=== PATIENT | female | born 1935 | race Caucasian/White ===

== ENCOUNTER 2022-08-31 08:28 | Inpatient (IN) | payer MEDICARE, OTHER, SELFPAY ==
[2022-08-31] VITALS (47 sets, daily range): BP systolic 111–161; BP diastolic 72–133; PULSE 65–113; RESP 15–26; TEMP 36.5–36.8; O2SAT 22–99; BMI 19.2
--- NOTE | 2022-08-31 | CTR_ITS ---
PROCEDURE INFORMATION: Exam: CT Head Without Contrast Exam date and time: 08/31/2022 8:25 AM Age: 87 years old Clinical indication: Stroke-like symptoms; Altered mental status/memory loss; Additional info: AMS TECHNIQUE: Imaging protocol: Computed tomography of the head without contrast. Radiation optimization: All CT scans at this facility use at least one of these dose optimization techniques: automated exposure control; mA and/or kV adjustment per patient size (includes targeted exams where dose is matched to clinical indication); or iterative reconstruction. Other technique: STROKE PROTOCOL was implemented. REPORTING DATA: Count of CT and Cardiac NM exams in prior 12 months: This patient has received 0 known CTs and 0 known cardiac nuclear medicine studies in the 12 months prior to the current study. COMPARISON: No relevant prior studies available. RADIATION DOSE METRICS: Total DLP (mGy-cm): 957.58 FINDINGS: Brain: There is focal hypodensity in the right parietal region consistent with acute nonhemorrhagic infarct. There is generalized chronic atrophy with prominence of the ventricles and sulci. There is decreased white matter density consistent with chronic small vessel white matter ischemia. Mass effect or midline shift. Cerebral ventricles: The ventricles are prominent consistent with chronic atrophy. Paranasal sinuses: Visualized sinuses are unremarkable. No fluid levels. Mastoid air cells: Visualized mastoid air cells are well aerated. Bones/joints: Unremarkable. No acute fracture. Soft tissues: Unremarkable. CT/CT head thrombolytic [id number] IMPRESSION: Focal hypodensity in the right parietal region consistent with an acute nonhemorrhagic infarct. ASSESSMENT: ASPECTS ([place] Stroke Program Early CT Score) is 9.
--- NOTE | 2022-08-31 08:35 | ECG_ITS ---
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 Measurements Intervals [place] Rate: 144 P: 0 NH: 0 QRS: -72 QRSD: 147 T: 109 QT: 342 QTc: 530 Interpretive Statements ATRIAL FIBRILLATION WITH RAPID VENTRICULAR RESPONSE LEFT AXIS DEVIATION [QRS AXIS < -30] LEFT BUNDLE BRANCH BLOCK [120+ ms QRS DURATION, 80+ ms Q/S IN V1/V2, 85+ ms R IN I/aVL/V5/V6] No previous ECG available for comparison Electronically Signed On 09-01-2022 10:06:21 CDT by Olaf Murry M.D. [id number]
--- NOTE | 2022-08-31 08:35 | XR_ITS ---
WS: [id number] Exam: XR chest 1V portable [id number] Date/Time of Exam: 08/31/2022 8:38 AM Reason For Exam: stroke Comparison 02/19/2007. There is cardiac enlargement with diffuse pulmonary vascular congestion suggesting low-grade CHF. The lungs are fully inflated. No consolidated infiltrates. No pleural effusions. The mediastinum is norm al in contour. Bony structures are intact. XR/XR chest 1V portable [id number] IMPRESSION: 1. Cardiac enlargement with diffuse pulmonary vascular congestion suspicious fo r low-grade CHF.
--- NOTE | 2022-08-31 08:38 | W.ED.NEUROSD ---
HPI - Neuro Symptoms/Deficit General: Chief Complaint: Neuro Symptoms/Deficit Stated Complaint: Stroke Time Seen by Provider: 08/31/22 08:35 History of Present Illness: Patient brought in by EMS to the ED with code stroke symptoms. Patient was found down on her floor this morning with left-sided weakness slurring of her speech and left facial droop. Patient went to bed at 10 PM last night fine. And got up sometime in the middle the night and fell and was found down at 6 AM this morning. She does not have a history of stroke or left-sided weakness. EMS noted A-fib on the monitor. Patient does not have a history of A-fib that she knows of. Nothing is made the symptoms better or worse since they started. Review of Systems General: Reports: 10 or more systems reviewed and unremarkable except in HPI and below PFSH ED PFSH: Medical History (Updated 09/01/22 @ 18:46 by Forrest Henry DO) DVT (deep venous thrombosis) Hypertension Hypothyroidism Surgical History (Updated 08/31/22 @ 12:25 by Doroteo Berry MD) History of cataract surgery History of hysterectomy Family History (Updated 08/31/22 @ 12:26 by Doroteo Berry MD) Other CAD (coronary artery disease) Stroke Social History (Updated 08/31/22 @ 12:26 by Doroteo Berry MD) Smoking and tobacco status: never smoked Alcohol intake: never Physical Exam Const: COMMON NORMALS: no acute distress, average body habitus, no limitations, healthy appearing, alert and well nourished HENMT: COMMON NORMALS: normocephalic, atraumatic, hearing grossly normal bilaterally, external ears normal, Normal external nose present and moist oral mucous membranes HEAD & SCALP: normocephalic and atraumatic NOSE: Normal external nose present EXTERNAL EAR: Yes external ears normal Eye: COMMON NORMALS: Equal, round and reactive pupils present, conjunctivae normal and no scleral icterus CONJUNCTIVA: Yes conjunctivae normal PUPIL: Yes Equal, round and reactive pupils present OTHER: Possible inability to track to the left of midline. Neck/C-Spine: COMMON NORMALS: full ROM, no lymphadenopathy, supple, no meningeal signs, no JVD and Thyroid normal THYROID: Thyroid normal Chest: COMMONS NORMALS: normal inspection of the chest and normal palpation of entire chest wall Resp: COMMON NORMALS: normal respiratory effort, No retractions, No use of accessory muscles and clear to auscultation bilaterally AUSCULTATION: clear to auscultation bilaterally Cardio: COMMON NORMALS: no JVD, S1 normal heart sound present and S2 normal heart sound present; negative for regular rate (Tachycardic with an irregularly irregular rhythm) RATE: abnormal rate (Tachycardic with an irregularly irregular rhythm) HEART SOUNDS: S1 normal heart sound present and S2 normal heart sound present GI: COMMON NORMALS: Normal to inspection, nondistended, normoactive bowel sounds present, Soft to palpation, No hepatosplenomegaly present and no masses PALPATION: Yes Soft to palpation and Yes No hepatosplenomegaly present : COMMON NORMALS: Yes no CVA tenderness BLADDER/KIDNEY EXAM: Yes no CVA tenderness Back/Pelvis: COMMON NORMALS: no CVA tenderness Neuro: KIMBERLEY COMA SCALE: document GCS findings (Alert and oriented x3.) SENSORIUM/ORIENTATION: Yes alert MENINGEAL SIGNS: Yes no meningeal signs CRANIAL NERVES: Yes CN normal except as noted (Left facial droop noted, possible inability to track left midline,) SPEECH: speech normal MOTOR EXAM: Other motor observations present (Equal symmetrical strength bilateral lower extremities, good strength in ri) Course Vital Signs: Vital signs: Vital Signs Temperature 98.0 F 09/01/22 17:05 Pulse Rate 95 09/01/22 17:05 Respiratory Rate 26 H 09/01/22 17:05 Blood Pressure 143/113 09/01/22 17:05 Pulse Oximetry 93 09/01/22 17:05 Oxygen Delivery Me thod Nasal Cannula 09/01/22 08:00 Oxygen Flow Rate 3 09/01/22 08:00 MDM - Neuro Symptoms/Deficit Medical Decision Making Patient presents to the ER as a code stroke. Patient was having left upper extremity weakness left facial droop left neglect. Dr. Andrade was consulted and she came and saw the patient and gave her NIH score of approximately 6. CT was performed which showed a left parietal stroke CTA was performed which was negative for large occlusion. Dr. Andrade said we need to admit for medical management. Dr. Berry was consulted who came and see the patient in ER. Patient also had A-fib with RVR with a rate of 140 bpm and was given 10 mg Cardizem. This is new onset. Patient will be admitted for further evaluation work-up. Differential Diagnosis Likely cerebrovascular accident; Unlikely carpal tunnel syndrome, convulsions, delirium, subarachnoid hemorrhage, peripheral neuropathy, multiple sclerosis or transient cerebral ischemia Medical Records I reviewed the patient's medical records. Lab Data I reviewed the patient's lab results. 09/01/22 04:16 09/01/22 04:[address] 08/31/22 00:00 IMPRESSION: Focal hypodensity in the right parietal region consistent with an acute nonhemorrhagic infarct. ASSESSMENT: ASPECTS ([place] Stroke Program Early CT Score) is 9. ADDENDUM: 08/31/22 0853 THIS REPORT CONTAINS FINDINGS THAT MAY BE CRITICAL TO PATIENT CARE. The findings were verbally communicated via telephone conference with Forrest Henry at 8:52 AM CDT on 08/31/2022. The findings were acknowledged and understood. Chest X-Ray 08/31/22 08:35 IMPRESSION: 1. Cardiac enlargement with diffuse pulmonary vascular congestion suspicious for low-grade CHF. Head/Neck CTA 08/31/22 09:02 IMPRESSION: 1. Focal hypodensity in the right parietal lobe consistent with acute nonhemorrhagic infarct. 2. No large vessel stenosis or occlusion. IMPRESSION: No stenosis or occlusion. REFERENCES: NASCET CRITERIA. The degree of stenosis in the cervical segment of the internal carotid artery is based on NASCET criteria. Normal is no stenosis. Mild is less than 50% stenosis. Moderate is 50-69% stenosis. Severe is 70% to 99% stenosis. Total occlusion is no detectable patent lumen. Laboratory Results WBC 7.9 10^3/uL (4.0-10.0) 08/31/22 08:45 RBC 4.68 10^6/uL (4.1-5.3) 08/31/22 08:45 Hgb 11.9 g/dL (11.5-15.3) 08/31/22 08:45 Hct 37.7 % (37.0-47.0) 08/31/22 08:45 MCV 80.6 fl (81-99) L 08/31/22 08:45 MCH 25.4 pg (28.0-34.0) L 08/31/22 08:45 MCHC 31.6 g/dL (30.0-36.0) 08/31/22 08:45 RDW 17.9 % (12.1-15.1) H 08/31/22 08:45 Plt Count 191 10^3/cmm (130-400) 08/31/22 08:45 MPV 9.9 fL (7.4-10.4) 08/31/22 08:45 Neut % (Auto) 80.0 % 08/31/22 08:45 Lymph % (Auto) 10.5 % 08/31/22 08:45 [place] % (Auto) 8.8 % 08/31/22 08:45 Eos % (Auto) 0.1 % 08/31/22 08:45 Baso % (Auto) 0.3 % 08/31/22 08:45 Neut # (Auto) 6.35 10^3/uL (1.8-7.7) 08/31/22 08:45 Lymph # (Auto) 0.8 10^3/uL (0.8-4.8) 08/31/22 08:45 [place] # (Auto) 0.7 10^3/uL (0.2-0.9) 08/31/22 08:45 Eos # (Auto) 0.0 10^3/uL (0.0-0.8) 08/31/22 08:45 Baso # (Auto) 0.0 10^3/uL (0.0-0.1) 08/31/22 08:45 Nucleated RBC % (auto) 0 % 08/31/22 08:45 Nucleated RBCs # 0.0 /100WBC 08/31/22 08:45 PT 13.80 SECONDS (12.1-14.9) 08/31/22 08:45 INR 1.03 (0.8-1.2) 08/31/22 08:45 APTT 24.8 SECONDS (23.9-36.7) 08/31/22 08:45 Sodium 138 mmol/L (136-145) 08/31/22 08:45 Potassium 3.5 mmol/L (3.5-5.1) 08/31/22 08:45 Chloride 102 mmol/L (98-107) 08/31/22 08:45 Carbon Dioxide 22 mmol/L (22-29) 08/31/22 08:45 Anion Gap 17.5 (5-19) 08/31/22 08:45 BUN 14 mg/dL (8-23) 08/31/22 08:45 Creatinine 0.8 mg/dL (0.5-0.9) 08/31/22 08:45 GFR Calculation Not Reportable 08/31/22 08:45 Glucose 152 mg/dL (65-115) H 08/31/22 08:45 POC Glucose 149 mg/dL (70-110) H 08/31/22 08:39 Calculated Osmolality 289 mOsm/kg (285-295) 08/31/22 08:45 Calcium 8.5 mg/dL (8.5-10.5) 08/31/22 08:45 Total Bilirubin 0.4 mg/dL (0.15-1.2) 08/31/22 08:45 AST 38 U/L (0-32) H 08/31/22 08:45 ALT 29 U/L (0-33) 08/31/22 08:45 Alkaline Phosphatase 84 U/L (35-105) 08/31/22 08:45 Troponin T Baseline 20 ng/L (0-10) H 08/31/22 08:40 Troponin T 120 Minute 26.29 ng/L (0-10) H 08/31/22 10:53 Delta Troponin T 6.29 ABS# (0-10) 08/31/22 10:53 Total Protein 7.4 g/dL (6.6-8.7) 08/31/22 08:45 Albumin 3.9 g/dL (3.5-5.2) 08/31/22 08:45 Globulin 3.5 g/dL (1.3-4.6) 08/31/22 08:45 TSH 1.49 uIU/mL (0.27-4.20) 08/31/22 08:40 Urine Color Light yellow (Yellow) 08/31/22 08:45 Urine Appearance Clear (CLEAR) 08/31/22 08:45 Urine pH 7 (5-7) 08/31/22 08:45 Ur Specific [place] 1.020 (1.005-1.030) 08/31/22 08:45 Urine Protein Neg (Negative) 08/31/22 08:45 Urine Glucose (UA) 2+ (Normal) H 08/31/22 08:45 Urine Ketones 1+ (Negative) H 08/31/22 08:45 Urine Blood 3+ (Negative) H 08/31/22 08:45 Urine Nitrate Negative (Negative) 08/31/22 08:45 Urine Bilirubin Neg (Negative) 08/31/22 08:45 Urine Urobilinogen Norm mg/dL (Negative) 08/31/22 08:45 Ur Leukocyte Esterase Negative (Negative) 08/31/22 08:45 Urine RBC 0-4 /hpf (0-2) H 08/31/22 08:45 Urine WBC 0-4 /hpf (0-5) H 08/31/22 08:45 Ur Squamous Epith Cells 0-4 /hpf (0-5) H 08/31/22 08:45 Amorphous Sediment 1+ /hpf 08/31/22 08:45 Urine Bacteria Trace /hpf (NONE) 08/31/22 08:45 Hyaline Casts Rare /lpf 08/31/22 08:45 Urine Mucus 1+ /hpf 08/31/22 08:45 Urine Opiates Screen Negative ng/mL (Negative) 08/31/22 08:45 Ur Barbiturates Screen Negative ng/mL (Negative) 08/31/22 08:45 Ur Phencyclidine Scrn Negative ng/mL (Negative) 08/31/22 08:45 Ur Amphetamines Screen Negative ng/mL (Negative) 08/31/22 08:45 U Benzodiazepines Scrn Negative ng/mL (Negative) 08/31/22 08:45 Urine Cocaine Screen Negative ng/mL (Negative) 08/31/22 08:45 U Marijuana (THC) Screen Negative ng/mL (Negative) 08/31/22 08:45 EKG Data EKG 1: I personally reviewed and interpreted this EKG as follows: EKG interpretation date: 08/31/22 EKG interpretation time: 08:58 Prior EKG tracings: not available for review Interpretation: EKG shows ventricular rate 144 beats a minute, A-fib with RVR, left axis deviation, left bundle branch block, QRS duration 147, QTc 425, no ST-T wave changes Discharge Plan Discharge Patient Disposition: Admitted As Inpatient Admit Provider: Doroteo Berry Clinical Impression: Cerebrovascular accident, Atrial fibrillation with rapid ventricular response Condition: Stable Coding Level of Care Code 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
[2022-08-31 08:52] LABS: Basophils % 0.3 %; Eosinophils % 0.1 %; Hematocrit 37.7 % (37.0-47.0); Hemoglobin 11.9 g/dL (11.5-15.3); Lymphocytes # 0.8 10^3/uL (0.8-4.8); Lymphocytes % 10.5 %; Mean Corpuscular HGB Conc 31.6 g/dL (30.0-36.0); Mean Corpuscular Hemoglobin 25.4 pg (28.0-34.0); Mean Corpuscular Volume 80.6 fl (81-99); Mean Platelet Volume 9.9 fL (7.4-10.4); Monocytes # 0.7 10^3/uL (0.2-0.9); Monocytes % 8.8 %; Neutrophils # 6.35 10^3/uL (1.8-7.7); Nucleated Red Blood Cells % 0 %; Platelet Count 191 10^3/cmm (130-400); Red Blood Count 4.68 10^6/uL (4.1-5.3); Red Cell Distribution Width 17.9 % (12.1-15.1); White Blood Count 7.9 10^3/uL (4.0-10.0)
[2022-08-31 08:59] LABS: Glucose Point of Care 149 mg/dL (70-110)
--- NOTE | 2022-08-31 09:02 | CTR_ITS ---
PROCEDURE INFORMATION: Exam: CTA Head With Contrast, Arteriography Exam date and time: 08/31/2022 9:26 AM Age: 87 years old Clinical indication: Cognitive deficit; Communication deficit; Additional info: CVA, left sided deficits TECHNIQUE: Imaging protocol: Computed tomographic angiography of the head with contrast. Exam focused on the arteries. 3D rendering (Not supervised by radiologist): MIP and/or 3D reconstructed images were created by the technologist. Radiation optimization: All CT scans at this facility use at least one of these dose optimization techniques: automated exposure control; mA and/or kV adjustment per patient size (includes targeted exams where dose is matched to clinical indication); or iterative reconstruction. Contrast material: OMNI 350; Contrast volume: 100 ml; Contrast route: INTRAVENOUS (IV); REPORTING DATA: Count of CT and Cardiac NM exams in prior 12 months: This patient has received 0 known CTs and 0 known cardiac nuclear medicine studies in the 12 months prior to the current study. COMPARISON: CT head thrombolytic [id number] 08/31/2022 8:25 AM RADIATION DOSE METRICS: Total DLP (mGy-cm): 368.94 FINDINGS: ANTERIOR CIRCULATION: Right internal carotid artery: Intracranial segment is patent with no significant stenosis. No aneurysm. Right middle cerebral artery: No occlusion or significant stenosis. No aneurysm. Right anterior cerebral artery: No occlusion or significant stenosis. No aneurysm. Left internal carotid artery: Intracranial segment is patent with no significant stenosis. No aneurysm. Left middle cerebral artery: No occlusion or significant stenosis. No aneurysm. Left anterior cerebral artery: No occlusion or significant stenosis. No aneurysm. POSTERIOR CIRCULATION: Right vertebral artery: No occlusion or significant stenosis. No aneurysm. Left vertebral artery: No occlusion or significant stenosis. No aneurysm. Basilar artery: No occlusion or significant stenosis. No aneurysm. Right posterior cerebral artery: No occlusion or significant stenosis. No aneurysm. Left posterior cerebral artery: No occlusion or significant stenosis. No aneurysm. Brain: There is focal hypodensity in the right parietal lobe consistent with acute nonhemorrhagic infarct Cerebral ventricles: No ventriculomegaly. Bones/joints: Unremarkable. No acute fracture. Soft tissues: Unremarkable. PROCEDURE INFORMATION: Exam: CTA Neck With Contrast Exam date and time: 08/31/2022 9:26 AM Age: 87 years old Clinical indication: Cognitive deficit; Communication deficit; Additional info: CVA, left sided deficits TECHNIQUE: Imaging protocol: Computed tomographic angiography of the neck with contrast. 3D rendering (Not supervised by radiologist): MIP and/or 3D reconstructed images were created by the technologist. Radiation optimization: All CT scans at this facility use at least one of these dose optimization techniques: automated exposure control; mA and/or kV adjustment per patient size (includes targeted exams where dose is matched to clinical indication); or iterative reconstruction. Contrast material: OMNI 350; Contrast volume: 100 ml; Contrast route: INTRAVENOUS (IV); REPORTING DATA: Count of CT and Cardiac NM exams in prior 12 months: This patient has received 0 known CTs and 0 known cardiac nuclear medicine studies in the 12 months prior to the current study. COMPARISON: CT head thrombolytic [id number] 08/31/2022 8:25 AM RADIATION DOSE METRICS: Total DLP (mGy-cm): 0.01 FINDINGS: Right common carotid artery: No stenosis. No dissection or occlusion. Right internal carotid artery: No stenosis of the extracranial segment. No dissection or occlusion. Right external carotid artery: No occlusion or stenosis of the origin. Left common carotid artery: No stenosis. No dissection or occlusion. Left internal carotid artery: No stenosis of the extracranial segment. No dissection or occlusion. Left external carotid artery: No occlusion or stenosis of the origin. Right vertebral artery: No stenosis. No dissection or occlusion. Left vertebral artery: No stenosis. No dissection or occlusion. Soft tissues: Normal. No significant soft tissue swelling. Bones/joints: No acute fracture. CT/CT angio headneck* [id number] IMPRESSION: 1. Focal hypodensity in the right parietal lobe consistent with acute nonhemorrhagic infarct. 2. No large vessel stenosis or occlusion. IMPRESSION: No stenosis or occlusion. REFERENCES: NASCET CRITERIA. The degree of stenosis in the cervical segment of the internal carotid artery is based on NASCET criteria. Normal is no stenosis. Mild is less than 50% stenosis. Moderate is 50-69% stenosis. Severe is 70% to 99% stenosis. Total occlusion is no detectable patent lumen.
[2022-08-31] MEDS: dilTIAZem 5 mg/mL SDV 5 mL 10 MG IVP (09:09)
[2022-08-31 09:15] LABS: INR 1.03 (0.8-1.2); Partial Thromboplastin Time 24.8 SECONDS (23.9-36.7)
[2022-08-31 09:24] LABS: Alanine Aminotransferase 29 U/L (0-33); Albumin Level 3.9 g/dL (3.5-5.2); Alkaline Phosphatase 84 U/L (35-105); Blood Urea Nitrogen 14 mg/dL (8-23); Calcium 8.5 mg/dL (8.5-10.5); Carbon Dioxide 22 mmol/L (22-29); Chloride 102 mmol/L (98-107); Globulin 3.5 g/dL (1.3-4.6); Glucose 152 mg/dL (65-115); Osmolality Calculated 289 mOsm/kg (285-295); Sodium 138 mmol/L (136-145); Total Bilirubin 0.4 mg/dL (0.15-1.2); Total Protein 7.4 g/dL (6.6-8.7)
[2022-08-31 09:31] LABS: Anion Gap 17.5 (5-19); Aspartate Amino Transferase 38 U/L (0-32); Potassium 3.5 mmol/L (3.5-5.1)
[2022-08-31 09:43] LABS: Urine Appearance Clear (CLEAR); Urine Color Light yellow (Yellow); pH Urine 7 (5-7)
[2022-08-31 09:44] LABS: Add Urine Microscopic? YES; Amphetamines Screen Urine Negative (Negative); Barbiturates Screen Urine Negative (Negative); Benzodiazepines Screen Urine Negative (Negative); Bilirubin Urine Neg (Negative); Blood Urine 3+ (Negative); Cocaine Screen Urine Negative (Negative); Glucose Urine UA 2+ (Normal); Ketones Urine 1+ (Negative); Leukocyte Esterase Urine Negative (Negative); Nitrate Urine Negative (Negative); Opiate Screen Urine Negative (Negative); PCP Screen Urine Negative (Negative); Protein Urine Neg (Negative); THC Screen Urine Negative (Negative); Urobilinogen Urine Norm (Negative)
[2022-08-31 09:57] LABS: Add Urine Culture? No; Amorphous Sediment Urine 1+ /hpf; Bacteria Urine TRACE /hpf; Hyaline Casts Urine RARE /lpf; Mucus Urine 1+ /hpf; RBC Urine 0-4 /hpf (0-2); Squamous Epithelial Cell Urine 0-4 /hpf (0-5); WBC Urine 0-4 /hpf (0-5)
--- NOTE | 2022-08-31 10:46 | USCV_ITS ---
EdwardsAimee Age: 87 Gender: F : 1935 Exam Date: 08/31/2022 15:37 Ordering Phys: Doroteo Berry MD Technologist: Peterson Junior Exam Location: [facility] [place]ication: CVA BP: 117 / 89 HR: 89 Rhythm: Sinus Technical Quality: Adequate MEASUREMENTS (Male / Female) Normal Values 2D ECHO LVOT Diameter 2.0 cm LV Ejection Fraction MOD 2C 44.4 % LV Ejection Fraction 2C AL 44.3 % LA Diameter 3.4 cm LA Width 3.9 cm LA Height 5.1 cm RA Width 4.6 cm RA Height 6.0 cm Aorta at Sinotubular Diameter 2.4 cm IVC Diameter 1.8 cm M-MODE Aortic Annulus Diameter 2.3 cm LA Ao Ratio MM 1.5 DOPPLER AV Peak Velocity 135.7 cm/s LVOT Peak Velocity 92.0 cm/s AV Area Cont Eq vti 2.4 cm squared AV Area Cont Eq pk 2.1 cm squared MV Peak Velocity 143.0 cm/s MV Area PHT 5.5 cm squared Mitral E to A Ratio 2.6 MV E' Velocity 54.5 cm/s Mitral E to MV E' Ratio 7.3 Mitral E to LV E' Lateral Ratio 5.7 Mitral E to LV E' Septal Ratio 10.2 TR Peak Velocity 262.2 cm/s TR Peak Gradient 27.5 mmHg TR Mean Velocity 186.9 cm/s TR Mean Gradient 15.7 mmHg TR Velocity Time Integral 68.4 cm Right Atrial Pressure 8.0 mmHg Pulmonary Artery Systolic Pressu 35.5 mmHg PV Peak Velocity 82.3 cm/s RV Acceleration Time 0.1 s RV Ejection Time 0.3 s RV AcT/ET 0.4 FINDINGS Left Ventricle Normal left ventricular cavity size. Mildly decreased left ventricular systolic function. Left ventricular ejection fraction is estimated at 40-45 %. Global left ventricular hypokinesis. Abnormal septal motion. Right Ventricle Normal right ventricular size and systolic function. Right ventricular systolic pressure 43 mmHg. Right Atrium Severely increased right atrial size. Left Atrium Moderately increased left atrial size. Mitral Valve Moderately thickened mitral valve. Moderate mitral annular calcification. No mitral valve stenosis. Mild-moderate mitral valve regurgitation. Aortic Valve Thickened trileaflet aortic valve. No aortic valve stenosis. Mild aortic valve regurgitation. Tricuspid Valve Structurally normal tricuspid valve. No tricuspid valve stenosis. Moderate tricuspid valve regurgitation. Pulmonic Valve Structurally normal pulmonic valve. No pulmonary valve stenosis. Trace pulmonary valve regurgitation. Pericardium No pericardial effusion. Aorta Normal size aortic root and proximal ascending aorta. IVC Normal IVC dimension with <50% respiratory change of the inferior vena cava. CONCLUSIONS 1. Normal left ventricular cavity size. Mildly decreased left ventricular systolic function. Left ventricular ejection fraction is estimated at 40-45 %. Global left ventricular hypokinesis. Abnormal septal motion. 2. Moderate tricuspid valve regurgitation. 3. Mild-moderate mitral valve regurgitation. 4. Mild aortic valve regurgitation. 5. No prior similar studies to compare. Lucretia Jimenez MD (Electronically Signed) Final Date: 31 August 2022 23:12 S
[2022-08-31] MEDS: dilTIAZem 100 MG in sodium chloride 0.9% (add-van) 100 ML IV (11:09)
[2022-08-31] MEDS: sodium chloride 0.9% 500 ML IV (11:10)
[2022-08-31 11:15] LABS: Troponin(5th) Baseline 20 ng/L (0-10)
[2022-08-31 11:29] LABS: Troponin 5 2HR 26.29 ng/L (0-10)
[2022-08-31] MEDS: aspirin 81 mg Chew Tablet 324 MG PO (11:39)
[2022-08-31 11:40] LABS: Troponin 5 2HR Delta 6.29 ABS# (0-10)
[2022-08-31 11:45] LABS: Thyroid Stimulating Hormone 1.49 uIU/mL (0.27-4.20)
--- NOTE | 2022-08-31 12:22 | PM.HP ---
Providers/Chief Complaint Admitting Physician: Doroteo Berry MD Chief Complaint: Stroke History of Present Illness Aimee Amanda is a 87 year old female who presented to the emergency department with complaints of left-sided weakness. She reports upon awakening this morning, she noted difficulty speaking, slurred speech, weakness on her left side upper extremity greater than lower extremity. She reports she was normal when she went to bed at night. She has never had any medical problems like this before. She denies any past history of atrial fibrillation. Atrial fibrillation was noted by EMS on arrival. She denies any history of blood in her stool or black or tarry stool. She has not been sick lately with any fever or respiratory symptoms. She denies any palpitations currently, and has not had any palpitations or chest discomfort recently. She does report she takes an aspirin daily. In the emergency department she got a bolus of diltiazem. I have ordered a diltiazem drip, some IV fluids cautiously, and aspirin p.o. Review of Systems General: Reports: 10 or more systems reviewed and unremarkable except in HPI and below Const: Denies: fever(s) or chills Card: Denies: chest pain or palpitations Resp: Denies: dyspnea GI: Denies: abdominal pain, nausea, hematochezia or melena Medications/Allergies Home Medications Medication Instructions Recorded Confirmed Last Taken Type amlodipine 2.5 mg tablet 2.5 mg PO DAILY@08/31/22 08/31/22 Unknown History aspirin 81 mg tablet,delayed 81 mg PO QAM 08/31/22 08/31/22 Unknown History release levothyroxine 88 mcg tablet 88 mcg PO DAILY@08/31/22 08/31/22 Unknown History multivitamin 1 tab PO QAM 08/31/22 08/31/22 Unknown History Allergies Allergy/AdvReac Type Severity Reaction Status Date / Time No Known Allergies Allergy Verified 08/31/22 09:47 PFSH Acute PFSH: Medical History (Updated 08/31/22 @ 12:37 by Doroteo Berry MD) DVT (deep venous thrombosis) Hypertension Hypothyroidism Surgical History (Updated 08/31/22 @ 12:25 by Doroteo Berry MD) History of cataract surgery History of hysterectomy Family History (Updated 08/31/22 @ 12:26 by Doroteo Berry MD) Other CAD (coronary artery disease) Stroke Social History (Updated 08/31/22 @ 12:26 by Doroteo Berry MD) Smoking and tobacco status: never smoked Alcohol intake: never Vitals/I&O/Wt Last Vital Signs Pulse 85 08/31/22 12:00 Resp 19 H 08/31/22 12:00 BP 161/133 08/31/22 12:00 Pulse Ox 91 08/31/22 10:30 Weight last 48 hrs Weight 53.977 kg Physical Exam Narrative: General exam is no distress, alert and conversive, slurred speech evident. HEENT: Atraumatic and normocephalic. Oropharynx clear. Neck is supple no lymphadenopathy thyromegaly Cardiovascular irregular, irregular with accelerated rate Lungs clear no wheezing or crackles Abdomen is soft nontender positive bowel sounds. No obvious organomegaly exam was deferred Extremities no cyanosis clubbing or edema, cap refill brisk Skin no rash Neuro slurred speech is evident. Reduction in strength noted on the left side. NIHSS score is approximately 6 Data 08/31/22 08:45 08/31/22 08:45 Other Labs: INR is normal Initial troponin 20 with repeat of 26 LFTs normal with exception of AST of 38 TSH I have ordered and is 1.49 Albumin 3.9 Calcium normal at 8.5 Urinalysis 0-4 reds 0-4 whites Urine drug screen negative CTA head and neck demonstrate no large vessel stenosis or occlusion CT head focal hypodensity right parietal region consistent with acute nonhemorrhagic infarct Chest x-ray which I visualized personally demonstrates some vascular congestion EKG which I reviewed personally demonstrates A-fib with RVR with a rate of 140, left bundle. She has no prior history of left bundle branch block. A&P Assessment and plan (1) Cerebrovascular accident: Patient presents with acute right parietal CVA she was not a candidate for tPA. She is not a candidate for thrombectomy. Initiate aspirin and Plavix Therapy consultations Continue telemetry Secondary to atrial fibrillation on admission, consideration of anticoagulation on discharge or at 48 hours. We will discuss risks and benefits with patient and family Echocardiogram Hydration if tolerated. Note she had some vascular congestion on chest x-ray Initiate atorvastatin 40 mg daily Lipid profile, A1c in the morning. Note that her blood sugar was 152 on arrival Frequent neurologic checks Qualifiers: CVA mechanism: thrombosis Laterality of affected vessel: right (2) Atrial fibrillation with rapid ventricular response: Check echocardiogram TSH has been ordered and normal Telemetry Initially Cardizem drip, with plans to convert to oral Cardizem in the near future Consider anticoagulation near end of hospital course As potentially new left bundle branch block is also noted serial troponins will be done. She denies any chest discomfort. (3) Hypertension: Permissive hypertension currently. Consider treatment if blood pressure greater than 220/120 (4) Hypothyroidism: TSH checked and normal. Continue current dose of thyroid hormone Plan Other medical problems as outlined in past medical history Allow natural , per patient request. Discussed in detail. Patient is cognizant, alert and oriented. Lovenox for DVT prophylaxis Attestations Medical Necessity Statement*: Will require greater than 2 midnight stay for evaluation and treatment of CVA with significant impairment Diagnoses Cerebrovascular accident I63.9 CVA mechanism: thrombosis Laterality of affected vessel: right Atrial fibrillation with rapid ventricular response I48.91 Hypertension I10 Hypothyroidism E03.9 Time Spent (min) 53
--- NOTE | 2022-08-31 13:14 | P.PNCC_ITS ---
Stroke Alert Activation ED Arrival Date: 08/31/22 ED Arrival Time: : Last Known Normal/at Baseline: 3-4 hours ago Other Last Known Well Infomation: She was last known well at 10:00 last night. The patient told me that she woke up at about 3 in the morning and discovered that she was on the floor. Her left side was hurting because she was laying on her left side. She had to crawl and it took her hours to find her phone and call 911. She is aware that her left side is weak although she does not spontaneously complain about it. Stroke alert was called by EMS prior to the patient's arrival and I called and talked with the triage nurse immediately. I called back when I did not hear from anyone and based upon the nurses description I ordered a CT angiogram as it sounded like the patient had a significant deficit, and she does. It was clear that the patient was not a candidate for tPA. I came to the department and reviewed the case with Dr. Henry. I reviewed the patient's exam. I talked with the patient about her stroke. I offered to talk with her daughter but her daughter was at work and not accessible. I reviewed her CT angiogram with Dr. Henry and then went down to the radiology department and reviewed it with Dr. Garrison. The patient did not have a retrievable clot and her CAT scan shows an infarct in the distal right middle cerebral artery distribution. She is in atrial fibrillation. I talked with Dr. Berry. Clearly the patient's only risk factor is A-fib (her blood vessels look well and no signs of significant atherosclerosis) and she is in A-fib with RVR. I reviewed current up-to-date recommendation for anticoagulation with A-fib after stroke and the author recommended initiating DOAC 48 hours after the stroke. The patient's stroke-volume is small to moderate and that would be the recommendation that I would agree with. Stroke Alert Activated by: EMS Stroke Alert Activation Time: 08:15 Stroke MD @ Bedside Time: 08:15 NIH Stroke Scale Time: 08:45 NIH stroke score NIHSS: Level Of Consciousness - 1a: 0 Level Of Consciousness Questions - 1b: Both Correct Level Of Consciousness Commands - 1c: Both Correct Best Gaze - 2: Partial Gaze Palsy Visual Cramer - 3: No Visual Loss Facial Palsy - 4: Minor Paralysis Motor Arm Right - 5: No Drift Motor Arm Left - 5: Effort Against [place] Motor Leg Right - 6: No Drift Motor Leg Left - 6: No Drift Limb Ataxia - 7: Absent Sensory - 8: Normal Best Language - 9: No Aphasia Dysarthia - 10: Mild/Moderate Dysarthia (Moderate aprosodia) Extinction And Inattention - 11: 1 (Sensory only not visual) Score: Total Score: 6 Stroke Alert Data/Treatment Time to CT of Head: 08:25 CT Results Time: 08:52 CT Impression: Focal hypodensity in the right parietal region consistent with an acute nonhemorrhagic infarct. ? ASSESSMENT: ASPECTS ([place] Stroke Program Early CT Score) is 9. ? Dictated By: Tim Wong Signed By: Tim Wong Signed Date/Time: 08/31/22 0843 Stroke Risk Factors: atrial fibrillation tPA Contraindication: tPA Contraindication: Treatment not indcated tPA Admin Prior to Arrival: No Patient & Family Educated on: Cause of Stroke and Treament Plan Other Patient & Family Education: I did not discuss anticoagulation with the patient but I discussed anticoagulation with Dr. Henry and then with Dr. Berry. Standardized Stroke Orders Used: Yes Critical Care Time Critical Care Time: 30 - 74 mins A&P Assessment and plan (1) Acute right arterial ischemic stroke, middle cerebral artery (MCA): Acute right middle cerebral artery stroke with severe weakness of the left arm, minor weakness of the left face, tendency for right gaze preference without full gaze preference and she has full eye movements. I could not establish a visual field cut. She is aprosodic. She does not have a retrievable clot and from the looks of her CAT scan, she already has significant infarction. The best plan is for initiating an anticoagulant within 48 hours based upon recommendation on up-to-date. Discussed with Dr. Berry. Risk of hemorrhage will need to be discussed with the patient and her daughter. (2) Atrial fibrillation with rapid ventricular response: Coding Level of Care Code Acute Code for [facility] Diagnoses Acute right arterial ischemic stroke, middle cerebral artery (MCA) I63.511 Atrial fibrillation with rapid ventricular response I48.91
[2022-08-31] MEDS: sodium chloride 0.9% 1,000 ML 75 ML IV (14:05)
[2022-08-31] MEDS: enoxaparin 40 mg/0.4 mL Syringe SUBCUT (14:06)
[2022-08-31] MEDS: atorvastatin 40 mg Tablet PO (21:35)
[2022-09-01] VITALS (218 sets, daily range): BP systolic 102–152; BP diastolic 70–113; PULSE 63–117; RESP 10–33; TEMP 36.3–36.7; O2SAT 88–99
[2022-09-01] MEDS: sodium chloride 0.9% 1,000 ML 75 ML IV (03:52)
[2022-09-01 04:47] LABS: Basophils % 0.2 %; Eosinophils # 0.1 10^3/uL (0.0-0.8); Eosinophils % 1.8 %; Hematocrit 35.4 % (37.0-47.0); Hemoglobin 11.1 g/dL (11.5-15.3); Lymphocytes # 1.3 10^3/uL (0.8-4.8); Lymphocytes % 29.2 %; Mean Corpuscular HGB Conc 31.4 g/dL (30.0-36.0); Mean Corpuscular Hemoglobin 25.3 pg (28.0-34.0); Mean Corpuscular Volume 80.6 fl (81-99); Mean Platelet Volume 10.3 fL (7.4-10.4); Monocytes # 0.6 10^3/uL (0.2-0.9); Monocytes % 13.7 %; Neutrophils # 2.41 10^3/uL (1.8-7.7); Neutrophils % 54.9 %; Nucleated Red Blood Cells % 0 %; Platelet Count 172 10^3/cmm (130-400); Red Blood Count 4.39 10^6/uL (4.1-5.3); Red Cell Distribution Width 18.3 % (12.1-15.1); White Blood Count 4.4 10^3/uL (4.0-10.0)
[2022-09-01 04:58] LABS: Estmated Average Glucose 131; Hemoglobin A1C 6.2 % (4.0-6.0)
[2022-09-01 05:05] LABS: Alanine Aminotransferase 25 U/L (0-33); Albumin Level 3.3 g/dL (3.5-5.2); Alkaline Phosphatase 70 U/L (35-105); Anion Gap 12.9 (5-19); Aspartate Amino Transferase 32 U/L (0-32); Blood Urea Nitrogen 15 mg/dL (8-23); Calcium 8.4 mg/dL (8.5-10.5); Carbon Dioxide 24 mmol/L (22-29); Chloride 107 mmol/L (98-107); Globulin 2.9 g/dL (1.3-4.6); Glucose 107 mg/dL (65-115); Magnesium 1.8 mg/dL (1.7-2.3); Osmolality Calculated 291 mOsm/kg (285-295); Potassium 3.9 mmol/L (3.5-5.1); Sodium 140 mmol/L (136-145); Total Bilirubin 0.5 mg/dL (0.15-1.2); Total Protein 6.2 g/dL (6.6-8.7)
[2022-09-01 05:09] LABS: Chol HDL Ratio 2.94 mg/dL (0.0-4.40); Cholesterol 100 mg/dL (0-200); HDL Cholesterol 34 mg/dL (60-100); LDL Cholesterol Calculated 51 mg/dL (50-129); Triglycerides 75 mg/dL (0-150)
[2022-09-01] MEDS: levothyroxine 88 mcg Tablet PO (07:47)
[2022-09-01] MEDS: clopidogrel 75 mg Tablet PO (08:57)
[2022-09-01] MEDS: aspirin 81 mg EC Tablet PO (08:57)
[2022-09-01] MEDS: metoprolol tartrate 25 mg Tablet 12.5 MG PO (08:58)
--- NOTE | 2022-09-01 09:24 | ECG_ITS ---
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 Measurements Intervals [place] Rate: 99 P: 0 OR: 0 QRS: -72 QRSD: 147 T: 107 QT: 358 QTc: 461 Interpretive Statements ATRIAL FIBRILLATION INTRAVENTRICULAR CONDUCTION DELAY [130+ ms QRS DURATION] LATERAL MYOCARDIAL INFARCTION , PROBABLY RECENT INFERIOR MYOCARDIAL INFARCTION , OF INDETERMINATE AGE Compared to ECG 08/31/2022 08:58:50 Intraventricular conduction delay now present Myocardial infarct finding now present Left-axis deviation no longer present Left bundle-branch block no longer present Electronically Signed On 09-01-2022 12:14:22 CDT by Lucretia Jimenez M.D. [id number]
--- NOTE | 2022-09-01 10:51 | PC.CHAP ---
Pastoral Care Encounter/Spiritual Assessment Type of Contact [x] Declined biostatistician visit [] Patient/Family/Request visit [] Outpatient visit [] Follow-up visit [] Physician referral [] Code/Alert [] Routine visit [] Staff referral [] Actively dying [] Patient sleeping [] Family support [] [] Out of room [] Palliative care [] [] Receiving care in room [] Pre-surgical visit [] Trauma [] Long length of stay [] ICU visit [] Other: Relational/Emotional Strength [] Patient feels connected with others/family/visitors/staff [] Distress [] Loneliness/isolation [] Abandonment Spirituality of Patient [] Person of Treva [] Attends Yarsanism of their [place] [] Believes in Prayer [] Reads Bible or Sikhism materials [] There are Spiritual issues 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 [] Prayer [] Active listening [] Non-anxious presence [] Spiritual/emotional support [] Crisis/trauma care [] Spiritual counseling [] Bereavement support [] Provided bereavement packet [] Provided Bible/devotional materials [] Provided toy/stuffed animal, coloring book to patient or family member [] Provided Communion [] Anointing/[place] [] Salvation [] Completed spiritual assessment [] Other: Impact on Illness or Injury [] Angry [] Fearful [] Anxious [] Often cries [] Exhaustion [] Unable to work [] Unable to attend jehovah's witness [] Unable to walk/stand [] Unable to read [] Unable to drive [] Unable to eat/drink [] Unable to sleep [] Unable to be with family [] Patient intubated [] Other: Summary Declined biostatistician visit Time spent with patient 5 mins
[2022-09-01] MEDS: enoxaparin 40 mg/0.4 mL Syringe SUBCUT (13:35)
--- NOTE | 2022-09-01 14:46 | P.PN_ITS ---
Subjective Subjective: Ada which she is about the same today. She thinks she might be able to move her left arm a little bit better. No pain. Medications: Reviewed: Yes Vitals/I&O/Wt Last Vital Signs Temp 97.7 F 09/01/22 12:00 Pulse 79 09/01/22 13:20 Resp 19 H 09/01/22 13:20 BP 132/74 09/01/22 13:20 Pulse Ox 93 09/01/22 13:20 O2 Del Method Nasal Cannula 09/01/22 08:00 O2 Flow Rate 3 09/01/22 08:00 08/31/22 09/01/22 09/01/22 22:59 06:59 14:59 Intake Total 528 / 528 1000 / 1528 899.875 / 899.875 Balance 528 / 528 1000 / 1528 899.875 / 899.875 Weight last 48 hrs Weight 53.977 kg Physical Exam Narrative: General conversive. Telemetry indicates atrial fibrillation with controlled rate Neck is supple no lymphadenopathy thyromegaly Cardiovascular irregular, irregular with old rate and no murmur Lungs clear no wheezing or crackles Abdomen is soft nontender positive bowel sounds. No obvious organomegaly Extremities no cyanosis clubbing or edema, cap refill brisk Skin no rash Neuro slurred speech is evident. Reduction in strength noted on the left side. No change from yesterday Data 09/01/22 04:16 09/01/22 04:16 Other Labs: Echo demonstrated ejection fraction of 40 to 45%, hypokinesis, moderate tr icuspid and mild to moderate mitral regurgitation A&P Assessment and plan (1) Cerebrovascular accident: Patient presents with acute right parietal CVA she was not a candidate for tPA. She is not a candidate for thrombectomy. Continue aspirin and Plavix Therapy consultations. Continue telemetry Secondary to atrial fibrillation on admission, consideration of anticoagulation on discharge or at 48 hours. Risks and benefits discussed with family in detail as well as patient. They agree to initiation of anticoagulation. Continue aspirin low-dose. Discontinue Plavix for tomorrow with plans on adding Xarelto. May discontinue hydration at this time Continue atorvastatin 40 mg daily A1c reviewed. Slightly elevated. Could conceivably benefit from metformin at discharge Continue neurologic checks Qualifiers: CVA mechanism: thrombosis Laterality of affected vessel: right (2) Atrial fibrillation with rapid ventricular response: Echocardiogram shows findings above. EF is diminished. Consider outpatient nuclear stress testing. For now continue aspirin. Add beta-carie low-dose and discontinue Cardizem drip. Continue statin. TSH has been ordered and normal Telemetry Anticoagulation to be initiated tomorrow As potentially new left bundle branch block is also noted serial troponins will be done. She denies any chest discomfort. (3) Hypertension: Permissive hypertension currently. Consider treatment if blood pressure greater than 220/120 (4) Hypothyroidism: TSH checked and normal. Continue current dose of thyroid hormone Plan Other medical problems as outlined in past medical history Allow natural , per patient request. Discussed in detail. Patient is cognizant, alert and oriented. Lovenox for DVT prophylaxis Will need skilled placement Attestations Medical Necessity Statement*: Needs continued hospitalization, for evaluation and treatment of CVA with si gnificant impairment Diagnoses Cerebrovascular accident I63.9 CVA mechanism: thrombosis Laterality of affected vessel: right Atrial fibrillation with rapid ventricular response I48.91 Hypertension I10 Hypothyroidism E03.9 Time Spent (min) 28
--- NOTE | 2022-09-01 17:07 | PC.NURSE ---
reported shortness of breath Pt described that she can't take a full deep breath now. spo2 is 95% on 2 L NC. Right lung areas has crackles. Noted pt HR is up to 120s when walking w/PT to therapy this afternoon. HR down to low 100s when at rest. BP- 143/[address] Berry via telephone. Received telephone orders read back to give 40 mg IVP lasix once and increase metoprolol to 25 mg, first dose at 6pm.
[2022-09-01] MEDS: FUROsemide 10 mg/mL SDV 4mL 40 MG IVP (17:36)
[2022-09-01] MEDS: metoprolol tartrate 25 mg Tablet PO (17:36)
[2022-09-01] MEDS: atorvastatin 40 mg Tablet PO (20:20)
[2022-09-02] VITALS (11 sets, daily range): BP systolic 124–156; BP diastolic 77–101; PULSE 70–94; RESP 15–20; TEMP 36.3–36.6; O2SAT 95–98
[2022-09-02 05:38] LABS: Basophils % 0.2 %; Eosinophils # 0.1 10^3/uL (0.0-0.8); Eosinophils % 1.9 %; Hemoglobin 11.5 g/dL (11.5-15.3); Lymphocytes # 1.3 10^3/uL (0.8-4.8); Lymphocytes % 32.4 %; Mean Corpuscular HGB Conc 31.1 g/dL (30.0-36.0); Mean Corpuscular Hemoglobin 25.3 pg (28.0-34.0); Mean Corpuscular Volume 81.3 fl (81-99); Mean Platelet Volume 10.6 fL (7.4-10.4); Monocytes # 0.6 10^3/uL (0.2-0.9); Monocytes % 14.6 %; Neutrophils # 2.08 10^3/uL (1.8-7.7); Neutrophils % 50.7 %; Nucleated Red Blood Cells % 0 %; Platelet Count 183 10^3/cmm (130-400); Red Blood Count 4.55 10^6/uL (4.1-5.3); Red Cell Distribution Width 18.4 % (12.1-15.1); White Blood Count 4.1 10^3/uL (4.0-10.0)
[2022-09-02 05:59] LABS: Anion Gap 13.8 (5-19); Blood Urea Nitrogen 16 mg/dL (8-23); Calcium 8.8 mg/dL (8.5-10.5); Carbon Dioxide 27 mmol/L (22-29); Chloride 106 mmol/L (98-107); Glucose 89 mg/dL (65-115); Osmolality Calculated 297 mOsm/kg (285-295); Potassium 3.8 mmol/L (3.5-5.1); Sodium 143 mmol/L (136-145)
[2022-09-02] MEDS: levothyroxine 88 mcg Tablet PO (06:04)
[2022-09-02] MEDS: metoprolol tartrate 25 mg Tablet PO ×2 (06:04→17:55)
--- NOTE | 2022-09-02 07:58 | PM.PN ---
Subjective Subjective: Aimee Gerardo feels a little short of breath. No chest pain. Heart rate has improved, and most are less than 100. I did give her 40 mg of Lasix IV yesterday, and her oxygen needs have decreased to 2 L. Medications: Reviewed: Yes Vitals/I&O/Wt Last Vital Signs Temp 97.7 F 09/02/22 04:00 Pulse 72 09/02/22 07:55 Resp 18 09/02/22 04:00 BP 134/89 09/02/22 04:00 Pulse Ox 98 09/02/22 07:55 O2 Del Method Nasal Cannula 09/02/22 07:55 O2 Flow Rate 2 09/02/22 07:55 09/01/22 09/02/22 09/02/22 22:59 06:59 14:59 Intake Total 726.125 / 1626.000 Output Total 500 / 500 1150 / 1650 Balance 226.125 / 1126.000 -1150 / -24.000 Weight last 48 hrs Weight 53.977 kg Physical Exam Narrative: General no distress Cardiovascular irregular, irregular with old rate and no murmur Lungs clear no wheezing or crackles Abdomen is soft nontender positive bowel sounds. No obvious organomegaly Extremities no cyanosis clubbing or edema, cap refill brisk Skin no rash Neuro slurred speech is evident. Reduction in strength noted on the left side. No change from yesterday. Still cannot make a fist or extend her fingers. Data 09/02/22 04:50 09/02/22 04:50 A&P Assessment and plan (1) Cerebrovascular accident: Patient presents with acute right parietal CVA she was not a candidate for tPA. She is not a candidate for thrombectomy. Continue aspirin and Plavix Therapy consultations. Continue telemetry. She has persistent atrial fibrillation, now controlled rate on current dose of metoprolol Secondary to atrial fibrillation on admission, consideration of anticoagulation on discharge or at 48 hours. Risks and benefits discussed with family in detail as well as patient. They agree to initiation of anticoagulation. Continue aspirin low-dose. Plavix will not be given today. Initiate Eliquis 5 mg twice daily. Continue atorvastatin 40 mg daily A1c reviewed. Slightly elevated. Could conceivably benefit from metformin at discharge Continue neurologic checks Qualifiers: CVA mechanism: unspecified Qualified Code(s): I63.9 - Cerebral infarction, unspecified (2) Atrial fibrillation with rapid ventricular response: Echocardiogram shows findings above. EF is diminished. Consider outpatient nuclear stress testing. For now continue aspirin. Continue beta-carie. Continue statin. TSH has been ordered and normal Telemetry Anticoagulation initiated today She has some persistent mild fluid overload. Lasix 20 mg IV today. BMP tomorrow to monitor for renal function. This is consistent with mild acute systolic heart failure (3) Hypertension: Blood pressure stable currently (4) Hypothyroidism: TSH checked and normal. Continue current dose of thyroid hormone Plan Other medical problems as outlined in past medical history Allow natural , per patient request. Discussed in detail. Patient is cognizant, alert and oriented. Lovenox for DVT prophylaxis Will need skilled placement Attestations Medical Necessity Statement*: Needs continued hospital stay for intensive rehabilitation pending placement, and further diuresis secondary to mild acute systolic congestive heart failure Diagnoses Cerebrovascular accident I63.9 CVA mechanism: unspecified Atrial fibrillation with rapid ventricular response I48.91 Hypertension I10 Hypothyroidism E03.9 Time Spent (min) 27
[2022-09-02] MEDS: FUROsemide 10 mg/mL SDV 2mL 20 MG IVP (08:31)
[2022-09-02] MEDS: apixaban 5 mg Tablet PO ×2 (08:31→20:01)
[2022-09-02] MEDS: aspirin 81 mg EC Tablet PO (08:31)
[2022-09-02] MEDS: atorvastatin 40 mg Tablet PO (20:01)
[2022-09-03 03:30] VITALS: PULSE 60
[2022-09-03 03:35] LABS: Basophils % 0.5 %; Eosinophils # 0.2 10^3/uL (0.0-0.8); Eosinophils % 4.2 %; Hematocrit 35.7 % (37.0-47.0); Hemoglobin 11.2 g/dL (11.5-15.3); Lymphocytes # 1.5 10^3/uL (0.8-4.8); Lymphocytes % 35.9 %; Mean Corpuscular HGB Conc 31.4 g/dL (30.0-36.0); Mean Corpuscular Hemoglobin 25.7 pg (28.0-34.0); Mean Corpuscular Volume 81.9 fl (81-99); Mean Platelet Volume 10.3 fL (7.4-10.4); Monocytes # 0.7 10^3/uL (0.2-0.9); Monocytes % 16.4 %; Neutrophils # 1.76 10^3/uL (1.8-7.7); Nucleated Red Blood Cells % 0 %; Platelet Count 169 10^3/cmm (130-400); Red Blood Count 4.36 10^6/uL (4.1-5.3); Red Cell Distribution Width 17.8 % (12.1-15.1); White Blood Count 4.1 10^3/uL (4.0-10.0)
[2022-09-03 04:00] VITALS: BP 142/94; PULSE 70; RESP 17; TEMP 36.6; O2SAT 98
[2022-09-03 04:01] LABS: Blood Urea Nitrogen 21 mg/dL (8-23); Calcium 8.9 mg/dL (8.5-10.5); Carbon Dioxide 28 mmol/L (22-29); Chloride 103 mmol/L (98-107); Glucose 99 mg/dL (65-115); Magnesium 1.7 mg/dL (1.7-2.3); Osmolality Calculated 297 mOsm/kg (285-295); Sodium 142 mmol/L (136-145)
[2022-09-03] MEDS: levothyroxine 88 mcg Tablet PO (06:03)
[2022-09-03] MEDS: metoprolol tartrate 25 mg Tablet PO (06:03)
[2022-09-03 07:06] VITALS: BP 124/98; PULSE 78; RESP 20; TEMP 36.8; O2SAT 97
[2022-09-03 07:30] VITALS: PULSE 72; O2SAT 96
[2022-09-03] MEDS: apixaban 5 mg Tablet PO (08:40)
[2022-09-03] MEDS: aspirin 81 mg EC Tablet PO (08:40)
--- NOTE | 2022-09-03 09:02 | PC.SOCIAL ---
IMM update IMM updated with patient. Verbalized an understanding. Copy Pg 2 provided. Initialled, dated, timed, and placed in chart.
[2022-09-03 09:16] LABS: SARS Covid-2 Antigen negative (Negative)
[2022-09-03 11:17] VITALS: BP 155/103; PULSE 98; RESP 14; O2SAT 96
--- NOTE | 2022-09-03 14:19 | PM.DCS ---
Discharge Providers Date of Admission: 08/31/22 13:04 Date of Discharge: September 03, 2022 Attending Provider at Admission: Doroteo Berry MD Attending Provider at Discharge: Karli Adam MD Primary Care Provider: Ibrahima Stovall Diagnoses at Discharge Discharge Diagnosis (1) Cerebrovascular accident: Status: Acute Qualifiers: CVA mechanism: unspecified Qualified Code(s): I63.9 - Cerebral infarction, unspecified (2) Atrial fibrillation with rapid ventricular response: Status: Acute (3) Hypertension: Status: Acute (4) Hypothyroidism: Status: Acute Reason for Visit Reason for Visit: Stroke Hospital Course Hospital Course Ada Pablo Amanda is a 87 year old female who presented to the emergency department with complaints of left-sided weakness. She was diagnosed with acute right parietal CVA, she was not a candidate for tPA.? She is not a candidate for thrombectomy.Secondary to atrial fibrillation on admission, she was started on Eliquis 5mg BID along with ASA 81mg daily. Atorvastatin 40mg was continued. Hba1c in pre diabetic range at 6.1. Recommend continued follow up with PCP after discharge. Patient participated with therapy as recommended during hospitalization and is being discharged to SNF today. Other notable finding during admission include Echocardiogram with LVEF 40-45% with global hypokinesis. Consider outpatient nuclear stress testing.? beta-carie was added at metoprolol 25mg BID.? TSH normal. On 09/02 she had signs of mild fluid overload for which she received Lasix 20 mg IV x 1 on 09/02 likely 2/2 systolic heart failure and IVF. She is euvolemic today at time of discharge. Physical Exam Narrative: General: No acute distress, AO x3 HEENT: PERRLA, pupils bilaterally equal and reactive, pallors not present Chest: Normal vesicular breath sounds, no added sounds, equal good air entry bilaterally CVS: S1-S2 regular, no murmurs, no tachycardia, no gallops, no rubs Abdomen: Soft, nontender, no organomegaly, bowel sounds present Neuro: slurred speech.? Reduction in strength noted on the left side. Discharge Data Studies Completed and Pending Completed Studies During Hospitalization Category Date Time Status CT head thrombolytic 14275 Stat Cat Scan 08/31/22 Completed CTA head neck [CT angio headneck* [id number]] Stat Cat Scan 08/31/22 09:02 Completed XR chest 1V portable [id number] Stat Exams 08/31/22 08:35 Completed CV. echo complete* [id number] Routine Ultrasound 08/31/22 10:46 Completed Radiology Impressions Head CT 08/31/22 00:00 IMPRESSION: Focal hypodensity in the right parietal region consistent with an acute nonhemorrhagic infarct. ASSESSMENT: ASPECTS ([place] Stroke Program Early CT Score) is 9. ADDENDUM: 08/31/22 0853 THIS REPORT CONTAINS FINDINGS THAT MAY BE CRITICAL TO PATIENT CARE. The findings were verbally communicated via telephone conference with Forrest Henry at 8:52 AM CDT on 08/31/2022. The findings were acknowledged and understood. Chest X-Ray 08/31/22 08:35 IMPRESSION: 1. Cardiac enlargement with diffuse pulmonary vascular congestion suspicious for low-grade CHF. Head/Neck CTA 08/31/22 09:02 IMPRESSION: 1. Focal hypodensity in the right parietal lobe consistent with acute nonhemorrhagic infarct. 2. No large vessel stenosis or occlusion. IMPRESSION: No stenosis or occlusion. REFERENCES: NASCET CRITERIA. The degree of stenosis in the cervical segment of the internal carotid artery is based on NASCET criteria. Normal is no stenosis. Mild is less than 50% stenosis. Moderate is 50-69% stenosis. Severe is 70% to 99% stenosis. Total occlusion is no detectable patent lumen. Laboratory Results WBC 4.1 10^3/uL (4.0-10.0) 09/03/22 02:45 RBC 4.36 10^6/uL (4.1-5.3) 09/03/22 02:45 Hgb 11.2 g/dL (11.5-15.3) L 09/03/22 02:45 Hct 35.7 % (37.0-47.0) L 09/03/22 02:45 MCV 81.9 fl (81-99) 09/03/22 02:45 MCH 25.7 pg (28.0-34.0) L 09/03/22 02:45 MCHC 31.4 g/dL (30.0-36.0) 09/03/22 02:45 RDW 17.8 % (12.1-15.1) H 09/03/22 02:45 Plt Count 169 10^3/cmm (130-400) 09/03/22 02:45 MPV 10.3 fL (7.4-10.4) 09/03/22 02:45 Neut % (Auto) 43.0 % 09/03/22 02:45 Lymph % (Auto) 35.9 % 09/03/22 02:45 [place] % (Auto) 16.4 % 09/03/22 02:45 Eos % (Auto) 4.2 % 09/03/22 02:45 Baso % (Auto) 0.5 % 09/03/22 02:45 Neut # (Auto) 1.76 10^3/uL (1.8-7.7) L 09/03/22 02:45 Lymph # (Auto) 1.5 10^3/uL (0.8-4.8) 09/03/22 02:45 [place] # (Auto) 0.7 10^3/uL (0.2-0.9) 09/03/22 02:45 Eos # (Auto) 0.2 10^3/uL (0.0-0.8) 09/03/22 02:45 Baso # (Auto) 0.0 10^3/uL (0.0-0.1) 09/03/22 02:45 Nucleated RBC % (auto) 0 % 09/03/22 02:45 Nucleated RBCs # 0.0 /100WBC 09/03/22 02:45 PT 13.80 SECONDS (12.1-14.9) 08/31/22 08:45 INR 1.03 (0.8-1.2) 08/31/22 08:45 APTT 24.8 SECONDS (23.9-36.7) 08/31/22 08:45 Sodium 142 mmol/L (136-145) 09/03/22 02:45 Potassium 4.0 mmol/L (3.5-5.1) 09/03/22 02:45 Chloride 103 mmol/L (98-107) 09/03/22 02:45 Carbon Dioxide 28 mmol/L (22-29) 09/03/22 02:45 Anion Gap 15.0 (5-19) 09/03/22 02:45 BUN 21 mg/dL (8-23) 09/03/22 02:45 Creatinine 1.0 mg/dL (0.5-0.9) H 09/03/22 02:45 GFR Calculation Not Reportable 09/03/22 02:45 Glucose 99 mg/dL (65-115) 09/03/22 02:45 POC Glucose 149 mg/dL (70-110) H 08/31/22 08:39 Estimat Average Glucose 131 09/01/22 04:16 Hemoglobin A1c 6.2 % (4.0-6.0) H 09/01/22 04:16 Calculated Osmolality 297 mOsm/kg (285-295) H 09/03/22 02:45 Calcium 8.9 mg/dL (8.5-10.5) 09/03/22 02:45 Magnesium 1.7 mg/dL (1.7-2.3) 09/03/22 02:45 Total Bilirubin 0.5 mg/dL (0.15-1.2) 09/01/22 04:16 AST 32 U/L (0-32) 09/01/22 04:16 ALT 25 U/L (0-33) 09/01/22 04:16 Alkaline Phosphatase 70 U/L (35-105) 09/01/22 04:16 Troponin T Baseline 20 ng/L (0-10) H 08/31/22 08:40 Troponin T 120 Minute 26.29 ng/L (0-10) H 08/31/22 10:53 Delta Troponin T 6.29 ABS# (0-10) 08/31/22 10:53 Troponin T Hi Sens 6Hr 26.50 ng/L (0-10) H 08/31/22 15:02 Troponin T Hi Sens 6Hr Delta 6.50 ng/L (0-12) 08/31/22 15:02 Total Protein 6.2 g/dL (6.6-8.7) L 09/01/22 04:16 Albumin 3.3 g/dL (3.5-5.2) L 09/01/22 04:16 Globulin 2.9 g/dL (1.3-4.6) 09/01/22 04:16 Triglycerides 75 mg/dL (0-150) 09/01/22 04:16 Cholesterol 100 mg/dL (0-200) 09/01/22 04:16 LDL Cholesterol, Calc 51 mg/dL (50-129) 09/01/22 04:16 HDL Cholesterol 34 mg/dL (60-100) L 09/01/22 04:16 LDL/HDL Ratio 1.50 RATIO (0.00-3.22) 09/01/22 04:16 Cholesterol/HDL Ratio 2.94 mg/dL (0.0-4.40) 09/01/22 04:16 TSH 1.49 uIU/mL (0.27-4.20) 08/31/22 08:40 Urine Color Light yellow (Yellow) 08/31/22 08:45 Urine Appearance Clear (CLEAR) 08/31/22 08:45 Urine pH 7 (5-7) 08/31/22 08:45 Ur Specific [place] 1.020 (1.005-1.030) 08/31/22 08:45 Urine Protein Neg (Negative) 08/31/22 08:45 Urine Glucose (UA) 2+ (Normal) H 08/31/22 08:45 Urine Ketones 1+ (Negative) H 08/31/22 08:45 Urine Blood 3+ (Negative) H 08/31/22 08:45 Urine Nitrate Negative (Negative) 08/31/22 08:45 Urine Bilirubin Neg (Negative) 08/31/22 08:45 Urine Urobilinogen Norm mg/dL (Negative) 08/31/22 08:45 Ur Leukocyte Esterase Negative (Negative) 08/31/22 08:45 Urine RBC 0-4 /hpf (0-2) H 08/31/22 08:45 Urine WBC 0-4 /hpf (0-5) H 08/31/22 08:45 Ur Squamous Epith Cells 0-4 /hpf (0-5) H 08/31/22 08:45 Amorphous Sediment 1+ /hpf 08/31/22 08:45 Urine Bacteria Trace /hpf (NONE) 08/31/22 08:45 Hyaline Casts Rare /lpf 08/31/22 08:45 Urine Mucus 1+ /hpf 08/31/22 08:45 Urine Opiates Screen Negative ng/mL (Negative) 08/31/22 08:45 Ur Barbiturates Screen Negative ng/mL (Negative) 08/31/22 08:45 Ur Phencyclidine Scrn Negative ng/mL (Negative) 08/31/22 08:45 Ur Amphetamines Screen Negative ng/mL (Negative) 08/31/22 08:45 U Benzodiazepines Scrn Negative ng/mL (Negative) 08/31/22 08:45 Urine Cocaine Screen Negative ng/mL (Negative) 08/31/22 08:45 U Marijuana (THC) Screen Negative ng/mL (Negative) 08/31/22 08:45 SARS-CoV-2 Ag (Rapid) negative (Negative) 09/03/22 08:30 Vitals Last Vital Signs Temp 98.2 F 09/03/22 07:06 Pulse 98 09/03/22 11:17 Resp 14 09/03/22 11:17 BP 155/103 09/03/22 11:17 Pulse Ox 96 09/03/22 11:17 O2 Del Method Room Air 09/03/22 11:17 O2 Flow Rate 1 09/02/22 15:31 Discharge Plan Discharge Patient Disposition: Xfer SNF Condition: Stable Prescriptions: New atorvastatin 40 mg Tablet 40 mg PO BEDTIME 30 Days Qty: 30 0RF metoprolol tartrate 25 mg Tablet 25 mg PO Q12H 30 Days Qty: 60 0RF Eliquis 5 mg Tablet 5 mg PO BID@0900,2100 30 Days Qty: 60 0RF Continued multivitamin Tablet 1 tab PO QAM amlodipine 2.5 mg tablet 2.5 mg PO DAILY@09 aspirin 81 mg Tablet,Delayed Release (Dr/Ec) 81 mg PO QAM levothyroxine 88 mcg tablet 88 mcg PO DAILY@07 Discharge Orders: Discharge Order (Routine); Ordered 09/03/22 Ordered By: Karli Adam Referrals: [facility] [Outside] Discharge Diet: Cardiac Discharge Activity: As per PT/OT instructions Patient Instructions: Metoprolol (By mouth) (Lopressor, Toprol XL), Atorvastatin (By mouth) (Lipitor), Apixaban (By mouth) (Eliquis), Ischemic Stroke (DC), Opioid Safety Discharge Attestations Time Spent in Discharge Care*: greater than 30 min Quality Metrics Clinical Quality Measures [ Cerebrovascular Accident { Contraindication to Antithrombotic: None; antithrombotic prescribed; Contraindication to Anticoagulation: None; anticoagulation prescribed; Contraindication to Statin: None; Statin prescribed;}] Coding Level of Care Code Acute Code for [facility] Fwd Diagnoses Cerebrovascular accident I63.9 CVA mechanism: unspecified Atrial fibrillation with rapid ventricular response I48.91 Hypertension I10 Hypothyroidism E03.9
[2022-09-03 14:33] VITALS: BP 155/103; PULSE 98; RESP 14; TEMP 36.8; O2SAT 96
== END 2022-09-03 14:35 | disposition skilled nursing facility (03) | DRG 64 ==
LOC: ER 11:45 → CSU 13:16
PROVIDERS: Admitting Provider Internal Medicine; Emergency Provider Emergency Medicine; PCP Family Medicine; Visit Provider Student in an Organized Health Care Education/Training Program
DX: I63.311 Cerebral infarction due to thrombosis of right middle cerebral artery (principal); I50.21 Acute systolic (congestive) heart failure; G81.94 Hemiplegia, unspecified affecting left nondominant side; R47.81 Slurred speech; R29.810 Facial weakness; R29.706 NIHSS score 6; Z86.718 Personal history of other venous thrombosis and embolism; E03.9 Hypothyroidism, unspecified; I48.91 Unspecified atrial fibrillation; Z79.01 Long term (current) use of anticoagulants; Z79.02 Long term (current) use of antithrombotics/antiplatelets; Z79.82 Long term (current) use of aspirin; I44.7 Left bundle-branch block, unspecified; R73.03 Prediabetes; I11.0 Hypertensive heart disease with heart failure
CPT/HCPCS: 36415; 36416; 70450; 70496; 70498; 71045; 80048; 80053; 80061; 80306; 81001; 82962; 83036; 83735; 84443; 84484; 85025; 85610; 85730; 87426; 92507; 92523; 92526; 92610; 93005; 93306; 96365; 96366; 96372; 96375; 96376; 97110; 97116; 97161; 97166; 97530; 97535; 99285; J1650; J1940; J3490; J7030; J7040; Q9967

== ENCOUNTER → 2022-10-07 10:10 | Outpatient (BNVA) | payer MEDICARE, OTHER, SELFPAY | PROVIDERS: PCP Family Medicine; Referring Provider Student in an Organized Health Care Education/Training Program; Visit Provider Specialist | DX: I48.91 Unspecified atrial fibrillation; I69.354 Hemiplegia and hemiparesis following cerebral infarction affecting left non-dominant side; Z79.01 Long term (current) use of anticoagulants | CPT/HCPCS: 99204 ==